=== PATIENT | female | born 2005 | race African-American/Black ===

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

== ENCOUNTER 2023-10-01 23:22 | Emergency (ER) | payer OTHER ==
[2023-10-02 01:12] LABS: Influenza A by NAA Not Detected (NotDetected); Influenza B by NAA Not Detected (NotDetected); SARS-CoV-2 NAA Rapid Test Not Detected (NotDetected)
== END 2023-10-02 00:41 | disposition home or self-care (01) ==
LOC: ERS 23:22
DX: B34.9 Viral infection, unspecified (principal)
CPT/HCPCS: 87081; 87430; 99283

== ENCOUNTER 2023-12-12 18:44 | Emergency (ER) | payer OTHER | END 2023-12-13 01:24 | disposition home or self-care (01) | LOC: ERS 18:44 | DX: J02.0 Streptococcal pharyngitis (principal) | CPT/HCPCS: 87430; 99283 ==

== ENCOUNTER 2024-03-06 20:58 | Emergency (ER) | payer OTHER ==
[2024-03-06 21:24] LABS: Pregnancy Test - Urine (BHCG) POSITIVE (Negative); Pregu Control Background? CLEAR/WHITE (CLR/WHITE); Pregu Control Bar Appear? YES (CONTROL BAR); Specific Gravity 1.038 (1.002-1.036)
[2024-03-06 21:26] LABS: Bacteria/HPF None Seen HPF (None Seen); Bilirubin Negative (Negative); Blood, Urine 3+ (Negative); CAUTI Indications for Culture Pelvic or flank pain; Clarity Turbid (Clear); Glucose, Urine (Dipstick) Normal (Negative); Ketone, Urine Trace mg/dL (Negative); Leukocyte 25 Leu/uL (Negative); Nitrite Negative (Negative); Protein, Urine (Dipstick) 50 mg/dL (Neg-Trace); Specific Gravity, Urine 1.038 (1.002-1.036); pH, Urine 6.5 (5.0-9.0)
[2024-03-06 21:37] LABS: RBC/HPF Greater than 50 HPF (0-3)
[2024-03-06 21:38] LABS: Urine Culture Reflex No No
[2024-03-06] MEDS ORDERED: Acetaminophen 500 MG TAB ONE (22:56)
[2024-03-06 23:10] LABS: #Basophils 0.06 10x3/uL (0.0-0.2); %Basophils 0.8 % (0.0-1.0); %Eosinophils 2.5 % (0.0-10.0); %Lymphocytes 35.8 % (21.0-51.0); %Monocytes 6.5 % (0.0-10.0); %Neutrophils 54.1 % (42.0-75.0); Hemoglobin 13.4 g/dL (12.0-16.0); Mean Corpuscular HGB CONC 35.3 g/dL (32.0-36.0); Mean Corpuscular Hemoglobin 31.3 pg (27.0-31.0); Mean Corpuscular Volume 88.8 fL (78.0-98.0); Mean Platelet Volume 9.5 fL (7.4-10.4); Platelet Count 296 10x3/uL (130-400); RBC Distribution Width 12.9 % (11.5-14.5); Red Blood Cell (RBC) Count 4.28 mill/uL (4.20-5.40)
[2024-03-06 23:24] LABS: ALT (SGPT) 14 U/L (8-55); AST (SGOT) 19 U/L (5-34); Albumin 4.4 g/dL (3.5-5.0); Alkaline Phosphatase 75 U/L (40-110); Anion Gap 15 mmol/L (10-20); BUN (Urea Nitrogen) 6 mg/dL (7.0-18.7); Bilirubin, Total 0.3 mg/dL (0.2-1.2); Calc. Creatinine Clearance 0 mL/min (70-130); Calcium 9.6 mg/dL (7.8-10.44); Carbon Dioxide 23 mmol/L (22-29); Chloride 105 mmol/L (98-107); Estimated GFR 126; Globulin 3.5 g/dL (2.4-3.5); Glucose 83 mg/dL (70-105); Lipase 19 U/L (8-78); Potassium 3.5 mmol/L (3.5-5.1); Protein, Total 7.9 g/dL (6.0-8.3); Sodium 139 mmol/L (136-145)
== END 2024-03-07 00:15 | disposition home or self-care (01) ==
LOC: ERS 20:58
DX: O20.0 Threatened abortion (principal)
CPT/HCPCS: 36415; 76856; 80053; 81001; 81025; 83690; 84702; 85025; 86900; 86901

== ENCOUNTER 2024-03-12 18:44 | Emergency (ER) | payer OTHER | END 2024-03-12 20:46 | disposition home or self-care (01) | LOC: ERS 18:44 | DX: O03.9 Complete or unspecified spontaneous abortion without complication (principal) | CPT/HCPCS: 36415; 84702; 99283 ==

== ENCOUNTER 2024-10-29 15:47 | Emergency (ER) | payer SELFPAY ==
[2024-10-29 16:21] LABS: Pregnancy Test - Urine (BHCG) Negative (Negative); Pregu Control Background? CLEAR/WHITE (CLR/WHITE); Pregu Control Bar Appear? YES (CONTROL BAR)
[2024-10-29 16:22] LABS: Bacteria/HPF None Seen HPF (None Seen); CAUTI Indications for Culture Dysuria,urgency,freq; Glucose, Urine (Dipstick) Normal (Negative); Leukocyte Negative Leu/uL (Negative); Protein, Urine (Dipstick) Negative (Neg-Trace); RBC/HPF 0-3 HPF (0-3); Specific Gravity, Urine 1.022 (1.002-1.036); WBC/HPF 0-3 HPF (0-3)
[2024-10-29 16:24] LABS: Urine Culture Reflex No No
[2024-10-29] MEDS ORDERED: Lidocaine 1% PF 5 ML VIAL ONE (17:24)
[2024-10-29] MEDS ORDERED: cefTRIAXone (ROCEPHIN) 500 MG VIAL ONE (17:25)
[2024-10-29] MEDS ORDERED: Azithromycin 250 MG TAB ONE (18:26)
[2024-10-30 05:36] LABS: Chlamydia by PCR, Vaginal Swab Not Detected (NotDetected); GC by PCR, Vaginal Swab Not Detected (NotDetected)
== END 2024-10-29 18:33 | disposition home or self-care (01) ==
LOC: ERS 15:47
DX: N76.0 Acute vaginitis (principal); B96.89 Other specified bacterial agents as the cause of diseases classified elsewhere; F17.290 Nicotine dependence, other tobacco product, uncomplicated
CPT/HCPCS: 81001; 81025; 87480; 87491; 87510; 87591; 87660; 96372; 99283; J0696

== ENCOUNTER 2025-02-03 05:36 | Emergency (ER) | payer SELFPAY ==
[2025-02-03 06:09] LABS: #Basophils Less than 0.03 10x3/uL (0.0-0.2); #Eosinophils 0.22 10x3/uL (0.0-0.7); #Monocytes 0.34 10x3/uL (0.11-0.59); #Neutrophils 4.67 10x3/uL (1.40-6.50); %Basophils 0.0 % (0.0-1.0); %Eosinophils 3.6 % (0.0-10.0); %Lymphocytes 14.9 % (21.0-51.0); %Monocytes 5.5 % (0.0-10.0); %Neutrophils 75.8 % (42.0-75.0); Hematocrit 42.5 % (36.0-47.0); Hemoglobin 14.4 g/dL (12.0-16.0); Mean Corpuscular Hemoglobin 30.5 pg (27.0-31.0); Mean Corpuscular Volume 90.0 fL (78.0-98.0); Platelet Count 245 10x3/uL (130-400); Red Blood Cell (RBC) Count 4.72 mill/uL (4.20-5.40); White Blood Cell (WBC) Count 6.16 10x3/uL (4.8-10.8)
[2025-02-03 06:13] LABS: Glucose, Urine (Dipstick) Negative (Negative); Leukocyte Negative (Negative); Protein, Urine (Dipstick) Negative (Neg-Trace); Specific Gravity, Urine Greater/Equal 1.030 (1.005-1.030)
[2025-02-03 06:14] LABS: Pregnancy Test - Urine (BHCG) Negative (Negative); Pregu Control Background? CLEAR/WHITE (CLR/WHITE); Pregu Control Bar Appear? YES (CONTROL BAR)
[2025-02-03] MEDS ORDERED: Ondansetron PF 4 MG/2 ML Vial ONE (06:16)
[2025-02-03 06:22] LABS: CAUTI Indications for Culture Pelvic or flank pain; RBC/HPF None Seen HPF (0-3); Urine Culture Reflex No No; WBC/HPF None Seen HPF (0-3)
[2025-02-03 06:33] LABS: ALT (SGPT) 12 U/L (Less than 34); AST (SGOT) 26 U/L (11-34); Albumin 4.2 g/dL (3.1-4.5); Alkaline Phosphatase 69 U/L (40-110); Anion Gap 14 mmol/L (10-20); BUN (Urea Nitrogen) 8 mg/dL (7.0-18.7); Bilirubin, Total 0.7 mg/dL (0.3-1.2); Calc. Creatinine Clearance 0 mL/min (70-130); Calcium 9.1 mg/dL (7.8-10.44); Carbon Dioxide 22 mmol/L (22-29); Chloride 108 mmol/L (98-107); Globulin 3.3 g/dL (2.4-3.5); Glucose 98 mg/dL (70-105); Lipase 18 U/L (8-78); Potassium 3.6 mmol/L (3.5-5.1); Sodium 140 mmol/L (136-145)
== END 2025-02-03 07:07 | disposition home or self-care (01) ==
LOC: ERS 05:36
DX: R10.9 Unspecified abdominal pain (principal); R11.10 Vomiting, unspecified; R19.7 Diarrhea, unspecified; F17.290 Nicotine dependence, other tobacco product, uncomplicated
CPT/HCPCS: 80053; 81001; 81025; 83690; 85025; 96361; 96374; 96375; J2405

== ENCOUNTER 2025-02-08 14:40 | Emergency (ER) | payer SELFPAY ==
[2025-02-08] MEDS ORDERED: Famotidine 20 MG TAB ONE (15:22)
[2025-02-08] MEDS ORDERED: predniSONE 20 MG TAB ONE (15:22)
[2025-02-08] MEDS ORDERED: diphenhydrAMINE 25 MG CAP ONE (16:36)
== END 2025-02-08 17:06 | disposition home or self-care (01) ==
LOC: ERS 14:40
DX: H05.221 Edema of right orbit (principal); H02.052 Trichiasis without entropion right lower eyelid; F17.290 Nicotine dependence, other tobacco product, uncomplicated
CPT/HCPCS: 99282; J7512